=== PATIENT | male | born 1955 | race Caucasian/White ===

== ENCOUNTER 2019-10-23 10:07 | Outpatient (CLI) | payer BC, SELFPAY ==
[2019-10-23 11:19] LABS: Anion Gap 9 mmol/L (8-16); Blood Urea Nitrogen 10 mg/dL (9-20); Calcium 9.8 mg/dL (8.4-10.2); Carbon Dioxide 25 mmol/L (22-30); Chloride 99 mmol/L (98-107); Cholesterol 205 mg/dL (0-200); Estimated Glomerular Filt Rate > 60; Glucose 117 mg/dL (75-110); HDL Direct 51 mg/dL; Potassium 4.3 mmol/L (3.4-5.0); Sodium 133 mmol/L (137-145); Triglycerides 121 mg/dL (<150)
[2019-10-23 11:29] LABS: LDL Cholesterol Direct 132 mg/dL
[2019-10-23 11:49] LABS: Prostate Specific Antigen 1.5 ng/mL (< OR = 4.0)
== END 2019-10-23 10:08 | disposition home or self-care (01) ==
PROVIDERS: PCP Internal Medicine; Visit Provider Internal Medicine
DX: Z13.29 Encounter for screening for other suspected endocrine disorder (principal); I10 Essential (primary) hypertension; E78.5 Hyperlipidemia, unspecified; Z12.5 Encounter for screening for malignant neoplasm of prostate
CPT/HCPCS: 36415; 80048; 80061; 84153; 84443; G0103

== ENCOUNTER 2019-11-03 08:01 | Outpatient (CLI) | payer BC, SELFPAY ==
--- NOTE | ~2019-11-03 | CT_ITS ---
EXAMINATION: CT lung screening DATE: 11/03/2019 08:27 INDICATION: Tobacco use. TECHNIQUE: Computed tomography (CT) of the chest was performed without intravenous contrast. The dose -length product was 336.07 mGy-cm. Automated exposure control and iterative reconstruction technique were employed. COMPARISON: None FINDINGS: There is atherosclerosis of the aorta and coronary arteries. Heart size normal. No signific ant pleural or pericardial effusion. There is a 1.8 cm left adrenal adenoma. Otherwise, the upper abd omen is unremarkable. There are innumerable nodules measuring 2 mm or less primarily affecting the up per lobes in the subpleural location. No thoracic lymphadenopathy. IMPRESSION: 1. Subpleural miliary nodules measuring 2 mm or less primarily affecting the upper lobes, most likely infectious/inflammatory. Lung-RADS category 2: Benign appearance or behavior. Continue annual screen ing with noncontrast low-dose chest CT in 12 months. 2: Left adrenal adenoma measuring 1.8 cm. Reviewed, dictated and finalized at location A. IMPRESSION: 1. Subpleural miliary nodules measuring 2 mm or less primarily affecting the up per lobes, most likely infectious/inflammatory. Lung-RADS category 2: Benign ap pearance or behavior. Continue annual screening with noncontrast low-dose chest CT in 12 months. 2: Left adrenal adenoma measuring 1.8 cm.
--- NOTE | ~2019-11-03 | US_ITS ---
EXAMINATION: US aorta [facility] DATE: 11/03/2019 09:25 CDT INDICATION: Screening. Hypertension. High cholesterol. History of smoking. TECHNIQUE: Grayscale, color Doppler, and pulsed Doppler images of the aorta and common iliac arteries were obtained. COMPARISON: None. FINDINGS: The proximal aorta measures 2.7 cm greatest sagittal dimension. The mid aorta measures 2.2 cm greates t sagittal dimension. The distal aorta measures 2 cm greatest sagittal dimension. The right common in ternal iliac artery measures 1.2 cm. The left common iliac artery measures 1.2 cm. IMPRESSION: 1. Atherosclerosis of the aorta without evidence for aneurysm. Reviewed, dictated and finalized at location A.
== END 2019-11-03 08:02 | disposition home or self-care (01) ==
PROVIDERS: PCP Internal Medicine; Visit Provider Internal Medicine
DX: Z12.2 Encounter for screening for malignant neoplasm of respiratory organs (principal); R91.8 Other nonspecific abnormal finding of lung field; Z87.891 Personal history of nicotine dependence; Z13.6 Encounter for screening for cardiovascular disorders; I70.0 Atherosclerosis of aorta; D35.02 Benign neoplasm of left adrenal gland
CPT/HCPCS: 76706; G0297

== ENCOUNTER 2020-11-01 09:30 | Outpatient (CLI) | payer BC, SELFPAY ==
[2020-11-01 10:11] LABS: Hemoglobin A1C 5.8 % (<5.7)
[2020-11-01 10:12] LABS: Alanine Aminotransferase 49 U/L (4-50); Albumin Level 4.3 g/dL (3.5-5.1); Alkaline Phosphatase 57 U/L (38-126); Anion Gap 10 mmol/L (8-16); Aspartate Amino Transferase 34 U/L (17-59); Bilirubin,Total 0.8 mg/dL (0.2-1.3); Blood Urea Nitrogen 12 mg/dL (9-20); Calcium 9.5 mg/dL (8.4-10.2); Carbon Dioxide 22 mmol/L (22-30); Chloride 104 mmol/L (98-107); Cholesterol 139 mg/dL (0-200); Estimated Glomerular Filt Rate > 60; Glucose 116 mg/dL (65-110); HDL Direct 56 mg/dL; Potassium 4.7 mmol/L (3.4-5.0); Sodium 136 mmol/L (137-145); Triglycerides 92 mg/dL (<150)
[2020-11-01 10:23] LABS: LDL Cholesterol Direct 58 mg/dL
[2020-11-01 10:42] LABS: Prostate Specific Antigen 1.5 ng/mL (< OR = 4.0)
== END 2020-11-01 09:31 | disposition home or self-care (01) ==
PROVIDERS: PCP Internal Medicine; Visit Provider Nurse Practitioner
DX: Z12.5 Encounter for screening for malignant neoplasm of prostate (principal); E78.5 Hyperlipidemia, unspecified; R73.9 Hyperglycemia, unspecified
CPT/HCPCS: 36415; 80053; 80061; 83036; 84153; G0103

== ENCOUNTER 2021-04-30 08:36 | Outpatient (CLI) | payer BC, SELFPAY ==
--- NOTE | ~2021-04-30 | MR_ITS ---
EXAMINATION: MR shoulder RT wo con DATE: 04/30/2021 09:46 INDICATION: Pain in right shoulder. TECHNIQUE: Magnetic resonance imaging (MRI) of the right shoulder was performed without intravenous c ontrast. Sequences included axial PD-weighted FS FSE, coronal oblique PD-weighted FS FSE and T2-weigh azucena FS FSE, and sagittal oblique T2-weighted FS FSE and T1-weighted FSE. COMPARISON: Right shoulder radiographs 04/02/2021 FINDINGS: Coracoacromial arch: The acromion undersurface is flat in morphology (type I). There is severe acromioclavicular joint ost eoarthritis including inferiorly directed osteophytes. There is mild subacromial/subdeltoid bursitis. Rotator cuff: There is a bursal sided partial-thickness tear of supraspinatus and infraspinatus tendons measuring 1 4 mm anterior to posterior by 14 mm proximal to distal by 15% tendon thickness. There is an interstit ial tear at the distal attachment of the conjoined portion of the tendon measuring 5 mm anterior to p osterior by 2 mm proximal to distal by 40% tendon thickness. There is a small tear of infraspinatus m yotendinous junction. Teres minor tendon is normal. There is moderate subscapularis tendinopathy. The re is moderate fatty atrophy of teres minor muscle belly, consistent with quadrilateral space syndrom e. Biceps tendon and glenoid labrum: Biceps tendon is in bicipital groove. Intra-articular biceps tendon is normal. There is degeneration of the glenoid labrum without well-defined tear. Fluid: There is no glenohumeral joint effusion. Bones/cartilage: There is shallow partial-thickness cartilage loss of glenoid and humeral head. IMPRESSION: 1. Partial tears of supraspinatus and infraspinatus tendons. Small partial tear of infraspinatus myot endinous junction. 2. Mild glenohumeral joint chondrosis. 3. Severe acromioclavicular joint osteoarthritis. 4. Mild subacromial/subdeltoid bursitis. 5. Moderate fatty atrophy of teres minor muscle belly, consistent with quadrilateral space syndrome. Reviewed, dictated and finalized at location A. FARMER IMPRESSION: 1. Partial tears of supraspinatus and infraspinatus tendons. Small partial tear of infraspinatus myotendinous junction. 2. Mild glenohumeral joint chondrosis. 3. Severe acromioclavicular joint osteoarthritis. 4. Mild subacromial/subdeltoid bursitis. 5. Moderate fatty atrophy of teres minor muscle belly, consistent with quadrila teral space syndrome.
== END 2021-04-30 08:37 | disposition home or self-care (01) ==
PROVIDERS: PCP Internal Medicine; Visit Provider Orthopaedic Surgery
DX: M19.011 Primary osteoarthritis, right shoulder (principal); M75.51 Bursitis of right shoulder
CPT/HCPCS: 73221

== ENCOUNTER 2021-05-16 11:56 | Outpatient (CLI) | payer BC, SELFPAY ==
[2021-05-16 13:04] LABS: Alanine Aminotransferase 54 U/L (4-50); Albumin Level 4.6 g/dL (3.5-5.1); Alkaline Phosphatase 70 U/L (38-126); Anion Gap 8 mmol/L (8-16); Aspartate Amino Transferase 44 U/L (17-59); Bilirubin,Total 0.9 mg/dL (0.2-1.3); Blood Urea Nitrogen 12 mg/dL (9-20); Calcium 9.5 mg/dL (8.4-10.2); Carbon Dioxide 25 mmol/L (22-30); Chloride 98 mmol/L (98-107); Cholesterol 163 mg/dL (0-200); Estimated Glomerular Filt Rate > 60; Glucose 104 mg/dL (65-110); HDL Direct 54 mg/dL; Potassium 4.1 mmol/L (3.4-5.0); Sodium 131 mmol/L (137-145); Triglycerides 93 mg/dL (<150)
[2021-05-16 13:15] LABS: LDL Cholesterol Direct 79 mg/dL
[2021-05-16 13:43] LABS: Hemoglobin A1C 5.6 % (<5.7)
== END 2021-05-16 11:57 | disposition home or self-care (01) ==
LOC: ANHLAB 11:58
PROVIDERS: PCP Internal Medicine; Visit Provider Internal Medicine
DX: E78.5 Hyperlipidemia, unspecified (principal); Z51.81 Encounter for therapeutic drug level monitoring; Z79.899 Other long term (current) drug therapy; I10 Essential (primary) hypertension; R20.2 Paresthesia of skin; R73.9 Hyperglycemia, unspecified
CPT/HCPCS: 36415; 80053; 80061; 82607; 83036

== ENCOUNTER 2021-05-17 12:18 | Emergency (ER) | payer BC, SELFPAY ==
[2021-05-17 12:26] VITALS: BP 160/92; PULSE 85; RESP 16; TEMP 36.6; O2SAT 98
--- NOTE | 2021-05-17 13:06 | ED.DENTAL ---
HPI - Dental/Oral General Chief complaint: Dental/Oral Stated complaint: swelling gums Time Seen by Provider: 05/17/21 12:57 Source: patient and RN notes reviewed Mode of arrival: ambulatory Limitations: no limitations History of Present Illness HPI Narrative: Patient presents today complaint of a 2-week history of intermittent swollen and painful gums in the right upper and lower gumline. He has been using Tylenol Anbesol with some relief. Pain increases with biting and chewing. States it will be at least a couple of weeks until he is able to see a dentist. Related Data Allergies Allergy/AdvReac Type Severity Reaction Status Date / Time No Known Allergies Allergy Verified 05/17/21 12:52 Review of Systems Review of Systems: CONSTITUTIONAL: Denies body aches, fever, chills, or sweats. EYES: Denies visual changes, redness, or discharge. ENT: Denies rhinorrhea, congestion, sore throat, or otalgia.+gum Pain and swelling CARDIOVASCULAR: Denies chest pain, palpitations, or edema. RESPIRATORY: Denies cough or dyspnea. GASTROINTESTINAL: Denies abdominal pain, nausea, vomiting, or diarrhea. GENITOURINARY: Denies dysuria or hematuria. SKIN: Denies rash, itching, or wounds. MUSCULOSKELETAL: Denies back pain, joint pain, or myalgia. NEUROLOGIC: Denies headache, numbness, tingling, or weakness. PSYCH: Denies depression or anxiety. [facility] Past Medical History Medical History Arthritis Essential hypertension Mixed hyperlipidemia Tobacco abuse Wears glasses Family History Family History Sibling Patient's sister is in good health Patient's brother is in good health Father Cerebrovascular accident, Onset Age: 84 Family history of congestive heart failure, Onset Age: 84 No family history of osteoporosis Mother Family history of diabetes mellitus in first degree relative, Onset Age: 72 Diabetes mellitus Social History Social History Smoking packs per day: 1 Smoking cigarettes per day: 20.0 Years smoked: 40 Smoking pack-years: 40.00 Tobacco type: cigarettes Alcohol intake: current Substance use: never Additional occupation/education comments: [employer]. Gender identity (if verbalized by the patient): Male Comments At time of signature, I have reviewed and agree with nursing past medical, surgical, social and family history unless otherwise noted. Please see nursing chart for further information. There is no relevant family history pertinent to the presenting complaint Exam Narrative: GENERAL: Well-appearing, well-nourished, and in no acute distress. HEAD: Normocephalic, atraumatic. EYES: EOMI. No redness or drainage. Conjunctivae normal. ENT: Mucous membranes pink and moist. Throat normal. Uvula midline. Erythema and mild edema to the right upper gumline with tenderness to tooth #8. Scant swelling to right lower gumline. No obvious periapical abscesses noted. NECK: Normal AROM. Supple. No lymphadenopathy. CHEST: No respiratory distress. EXTREMITIES: Normal range of motion. No edema. SKIN: Warm, dry, no rash. Capillary refill normal. Normal skin turgor. NEURO: No focal deficits. Alert and oriented x3. Gait steady. PSYCH: Normal affect. No signs of depression or anxiety. Course Course Level of Care: Express Care Visit Vital Signs Vital signs: Vital Signs Temperature 97.8 F 05/17/21 12:26 Pulse Rate 85 05/17/21 12:26 Respiratory Rate 16 05/17/21 12:26 Blood Pressure 160/92 H 05/17/21 12:26 Pulse Oximetry 98 05/17/21 12:26 Temperature 97.8 F 05/17/21 12:26 Pulse Rate 85 05/17/21 12:26 Respiratory Rate 16 05/17/21 12:26 Blood Pressure 160/92 H 05/17/21 12:26 Pulse Oximetry 98 05/17/21 12:26 Reviewed. Pt has been instructed to follow up with his PCP regardin
== END 2021-05-17 13:13 | disposition home or self-care (01) ==
PROVIDERS: Emergency Provider Nurse Practitioner
DX: K05.10 Chronic gingivitis, plaque induced (principal); F17.210 Nicotine dependence, cigarettes, uncomplicated; M19.90 Unspecified osteoarthritis, unspecified site; I10 Essential (primary) hypertension; E78.2 Mixed hyperlipidemia
CPT/HCPCS: 99213; G0463

== ENCOUNTER 2021-05-28 15:56 | Outpatient (CLI) | payer BC, SELFPAY ==
--- NOTE | ~2021-05-28 | CT_ITS ---
EXAMINATION:CT lung screening DATE: 05/28/2021 16:16 INDICATION: Tobacco use. TECHNIQUE: Computed tomography (CT) of the chest was performed without intravenous contrast. Automate d exposure control and iterative reconstruction technique were employed. The dose-length product (DLP ) was 248.24 mGy-cm. COMPARISON: Chest CT 11/03/2019 FINDINGS: There is mild emphysema. There is mild atelectasis bilaterally. There is a stable 4 mm nodu le in left lower lobe. Again seen are multiple 1-2 mm nodules in the upper lungs. No pleural effusion . The heart size is normal. There are coronary artery calcifications. No pericardial effusion. There is a 16 mm cyst in right kidney. There is ectasia of ascending aorta measuring 4.4 cm. Again seen is a 1.7 cm mass in left adrenal gland measuring low-attenuation, consistent with an adenoma. There is s evere cervical and thoracic spondylosis. There is mild chronic anterior wedging of T12-L2 vertebral b odies. IMPRESSION: 1. Lung-RADS category 2: Benign appearance or behavior. Continue annual screening with noncontrast lo w-dose chest CT in 12 months. Reviewed, dictated and finalized at location A. IMPRESSION: 1. Lung-RADS category 2: Benign appearance or behavior. Continue annual screeni ng with noncontrast low-dose chest CT in 12 months.
== END 2021-05-28 15:57 | disposition home or self-care (01) ==
PROVIDERS: PCP Internal Medicine; Visit Provider Nurse Practitioner
DX: Z72.0 Tobacco use (principal)
CPT/HCPCS: 71271

== ENCOUNTER 2021-07-25 11:37 | Emergency (ER) | payer BC, SELFPAY ==
[2021-07-25 12:05] VITALS: BP 173/98; PULSE 102; RESP 16; TEMP 36.8; O2SAT 98
--- NOTE | 2021-07-25 12:37 | ED.EYEPROB ---
HPI - Eye Problem General Chief complaint: Eye Problems Stated complaint: right eye swollen/redness Time Seen by Provider: 07/25/21 12:37 Source: patient Mode of arrival: ambulatory Limitations: no limitations History of Present Illness HPI Narrative: 66-year-old male presents with complaint of right upper eyelid tenderness, itching, swelling, redness for 3 to 4 days. Is using a allergy eyedrop that he feels is helping with itching. Denies drainage. No vision changes. Does not wear contacts. All systems reviewed and negative except as noted above. Related Data Allergies Allergy/AdvReac Type Severity Reaction Status Date / Time No Known Allergies Allergy Verified 05/22/21 14:15 Review of Systems Review of Systems: CONSTITUTIONAL: Denies fever, chills, or sweats. EYES: Denies visual changes, redness, or discharge. ENT: Denies rhinorrhea, congestion, sore throat, or otalgia. CARDIOVASCULAR: Denies chest pain, palpitations, or edema. RESPIRATORY: Denies cough or dyspnea. GASTROINTESTINAL: Denies abdominal pain, nausea, vomiting, or diarrhea. GENITOURINARY: Denies dysuria or hematuria. SKIN: Denies rash or itching. Reports redness, tenderness, swelling to right upper eyelid. MUSCULOSKELETAL: Denies back pain, joint pain, or myalgia. NEUROLOGIC: Denies headache, numbness, or weakness. PSYCHIATRIC: Denies anxiety or depression. All other systems reviewed are negative, except as documented in HPI. COUNTS INCLUDE 234 BEDS AT THE [facility] Past Medical History Medical History Arthritis Essential hypertension Mixed hyperlipidemia Right rotator cuff tear Tobacco abuse Wears glasses Family History Family History Sibling Patient's sister is in good health Patient's brother is in good health Father Cerebrovascular accident, Onset Age: 84 Family history of congestive heart failure, Onset Age: 84 No family history of osteoporosis Mother Family history of diabetes mellitus in first degree relative, Onset Age: 72 Diabetes mellitus Social History Social History Smoking packs per day: 2 Smoking cigarettes per day: 40.0 Years smoked: 40 Smoking pack-years: 80.00 Tobacco type: cigarettes Second hand tobacco smoke exposure: No Alcohol intake: current Drinks per week: 30 Substance use: never Additional occupation/education comments: [employer]. Gender identity (if verbalized by the patient): Male Comments At time of signature, agree with nursing past medical, surgical, social and family history. There is no relevant family history pertinent to the presenting complaint. Exam Narrative: GENERAL: This is a well-nourished, well-developed patient, in no apparent distress. HEAD: normocephalic, atraumatic. EYES: PERRL. Sclera clear/white. Vision is grossly intact. Erythema, swelling to right upper eyelid with white pustule internally consistent for with a hordeolum. Tender on palpation. EARS: External ears normal NOSE: External nose normal NECK: Neck supple, non-tender without lymphadenopathy, masses or thyromegaly. CARDIOVASCULAR: Regular rate and rhythm without murmurs, gallops, or rubs. RESPIRATORY: Clear to auscultation. Breath sounds equal bilaterally. No wheezes, rales, or rhonchi. SKIN: warm, Dry, intact with no suspicious lesions or rash, good texture and turgor. NEURO: awake, alert, and oriented to person, place and time. There were no obvious focal neurologic abnormalities. EXTREMITIES: Normal range of motion to all extremities. Course Course Level of Care: Express Care Visit Vital Signs Vital signs: Vital Signs Temperature 36.8 C 07/25/21 12:05 Pulse Rate 102 H 07/25/21 12:05 Respiratory Rate 16 07/25/21 12:05 Blood Pressure 173/98 H 07/25/21 12:05 Pulse Oximetry 98 07/25/21 12:05 Oxygen Delivery Room Air 07/25/21 12:05 T
== END 2021-07-25 12:46 | disposition home or self-care (01) ==
PROVIDERS: Emergency Provider Nurse Practitioner Family
DX: H00.011 Hordeolum externum right upper eyelid (principal); F17.210 Nicotine dependence, cigarettes, uncomplicated; M19.90 Unspecified osteoarthritis, unspecified site; I10 Essential (primary) hypertension; E78.2 Mixed hyperlipidemia
CPT/HCPCS: 99213; G0463

== ENCOUNTER 2021-12-26 12:42 | Outpatient (CLI) | payer BC, SELFPAY ==
[2021-12-26 13:19] LABS: Alanine Aminotransferase 27 U/L (6-50); Albumin Level 4.4 g/dL (3.5-5.1); Alkaline Phosphatase 77 U/L (38-126); Anion Gap 12 mmol/L (8-16); Aspartate Amino Transferase 30 U/L (17-59); Bilirubin,Total 1.1 mg/dL (0.2-1.3); Blood Urea Nitrogen 11 mg/dL (9-20); Calcium 9.4 mg/dL (8.4-10.2); Carbon Dioxide 23 mmol/L (22-30); Chloride 95 mmol/L (98-107); Cholesterol 112 mg/dL (0-200); Estimated Glomerular Filt Rate > 60; Glucose 95 mg/dL (65-110); HDL Direct 51 mg/dL; Potassium 4.4 mmol/L (3.4-5.0); Sodium 130 mmol/L (137-145); Triglycerides 63 mg/dL (<150)
[2021-12-26 13:30] LABS: LDL Cholesterol Direct 42 mg/dL
[2021-12-26 13:40] LABS: Hemoglobin A1C 5.7 % (<5.7)
[2021-12-26 13:46] LABS: Prostate Specific Antigen 2.5 ng/mL (< OR = 4.0)
== END 2021-12-26 12:43 | disposition home or self-care (01) ==
LOC: ANHLAB 12:43
PROVIDERS: PCP Internal Medicine; Visit Provider Nurse Practitioner
DX: E78.5 Hyperlipidemia, unspecified (principal); Z12.5 Encounter for screening for malignant neoplasm of prostate; R73.9 Hyperglycemia, unspecified
CPT/HCPCS: 36415; 80053; 80061; 83036; 84153; G0103

== ENCOUNTER 2022-07-03 09:25 | Outpatient (CLI) | payer BC, SELFPAY ==
[2022-07-03 10:34] LABS: Hemoglobin A1C 5.5 % (<5.7)
[2022-07-03 10:39] LABS: Alanine Aminotransferase 46 U/L (6-50); Albumin Level 4.6 g/dL (3.5-5.1); Alkaline Phosphatase 62 U/L (38-126); Anion Gap 11 mmol/L (8-16); Aspartate Amino Transferase 35 U/L (17-59); Bilirubin,Total 0.7 mg/dL (0.2-1.3); Blood Urea Nitrogen 12 mg/dL (9-20); Calcium 9.3 mg/dL (8.4-10.2); Carbon Dioxide 24 mmol/L (22-30); Chloride 99 mmol/L (98-107); Cholesterol 130 mg/dL (0-200); Estimated Glomerular Filt Rate > 60; Glucose 108 mg/dL (65-110); HDL Direct 63 mg/dL; Potassium 4.2 mmol/L (3.4-5.0); Sodium 134 mmol/L (137-145); Triglycerides 74 mg/dL (<150)
[2022-07-03 10:50] LABS: LDL Cholesterol Direct 57 mg/dL
== END 2022-07-03 09:26 | disposition home or self-care (01) ==
PROVIDERS: Internal Medicine; PCP Family Medicine; Visit Provider Family Medicine
DX: I10 Essential (primary) hypertension (principal); Z79.899 Other long term (current) drug therapy; E78.5 Hyperlipidemia, unspecified; R73.02 Impaired glucose tolerance (oral)
CPT/HCPCS: 36415; 80053; 80061; 83036

== ENCOUNTER 2023-01-06 11:55 | Outpatient (CLI) | payer OTHER, SELFPAY ==
[2023-01-06 12:55] LABS: Hemoglobin A1C 5.5 % (<5.7)
[2023-01-06 12:58] LABS: Alanine Aminotransferase 35 U/L (6-50); Albumin Level 4.6 g/dL (3.5-5.1); Alkaline Phosphatase 53 U/L (38-126); Anion Gap 11 mmol/L (8-16); Aspartate Amino Transferase 27 U/L (17-59); Bilirubin,Total 0.9 mg/dL (0.2-1.3); Blood Urea Nitrogen 13 mg/dL (9-20); Carbon Dioxide 22 mmol/L (22-30); Chloride 101 mmol/L (98-107); Cholesterol 136 mg/dL (0-200); Estimated Glomerular Filt Rate > 60; Glucose 113 mg/dL (65-110); HDL Direct 56 mg/dL; Potassium 3.9 mmol/L (3.4-5.0); Sodium 134 mmol/L (137-145); Triglycerides 94 mg/dL (<150)
[2023-01-06 13:08] LABS: LDL Cholesterol Direct 64 mg/dL
== END 2023-01-06 11:56 | disposition home or self-care (01) ==
LOC: ANHLAB 11:59
PROVIDERS: PCP Nurse Practitioner; Visit Provider Nurse Practitioner
DX: E78.5 Hyperlipidemia, unspecified (principal); Z12.5 Encounter for screening for malignant neoplasm of prostate; R73.02 Impaired glucose tolerance (oral)
CPT/HCPCS: 36415; 80053; 80061; 83036; 84153; G0103

== ENCOUNTER 2023-07-06 12:32 | Outpatient (CLI) | payer OTHER, SELFPAY ==
[2023-07-06 13:30] LABS: Alanine Aminotransferase 42 U/L (6-50); Albumin Level 4.5 g/dL (3.5-5.1); Alkaline Phosphatase 62 U/L (38-126); Anion Gap 6 mmol/L (4-12); Aspartate Amino Transferase 32 U/L (17-59); Bilirubin,Total 0.8 mg/dL (0.2-1.3); Blood Urea Nitrogen 9 mg/dL (9-20); Carbon Dioxide 25 mmol/L (22-30); Chloride 104 mmol/L (98-107); Cholesterol 129 mg/dL (0-200); Estimated Glomerular Filt Rate > 60; Glucose 90 mg/dL (65-110); HDL Direct 52 mg/dL; Potassium 3.9 mmol/L (3.4-5.0); Sodium 135 mmol/L (137-145); Triglycerides 174 mg/dL (<150)
[2023-07-06 13:41] LABS: LDL Cholesterol Direct 68 mg/dL
[2023-07-06 15:13] LABS: Hemoglobin A1C 5.5 % (<5.7)
== END 2023-07-06 12:33 | disposition home or self-care (01) ==
LOC: ANHLAB 12:33
PROVIDERS: PCP Nurse Practitioner; Visit Provider Nurse Practitioner
DX: E78.5 Hyperlipidemia, unspecified (principal); R73.02 Impaired glucose tolerance (oral)
CPT/HCPCS: 36415; 80053; 80061; 83036

== ENCOUNTER 2023-07-26 12:52 | Outpatient (CLI) | payer OTHER, SELFPAY ==
[2023-07-27 16:13] LABS: Protein, Total 7.6 g/dL (6.1-8.1)
[2023-07-28 11:29] LABS: Abnormal Protein Band 1 0.6 g/dL (NONE DETECTED); Abnormal Protein Band 2 1.3 g/dL (NONE DETECTED); Albumin 3.6 g/dL (3.8-4.8); Alpha 1 Globulin 0.3 g/dL (0.2-0.3); Alpha 2 Globulin 0.8 g/dL (0.5-0.9); Beta 1 Globulin 0.8 g/dL (0.4-0.6); Gamma Globulin 1.9 g/dL (0.8-1.7)
== END 2023-07-26 12:53 | disposition home or self-care (01) ==
PROVIDERS: PCP Nurse Practitioner; Visit Provider Nurse Practitioner
DX: E88.09 Other disorders of plasma-protein metabolism, not elsewhere classified (principal)
CPT/HCPCS: 36415; 84155; 84165

== ENCOUNTER 2024-01-17 13:42 | Outpatient (CLI) | payer OTHER, SELFPAY ==
[2024-01-17 14:41] LABS: Alanine Aminotransferase 48 U/L (6-50); Albumin Level 4.5 g/dL (3.5-5.1); Alkaline Phosphatase 60 U/L (38-126); Anion Gap 8 mmol/L (4-12); Aspartate Amino Transferase 41 U/L (17-59); Bilirubin,Total 0.9 mg/dL (0.2-1.3); Blood Urea Nitrogen 9 mg/dL (9-20); Calcium 9.8 mg/dL (8.4-10.2); Carbon Dioxide 26 mmol/L (22-30); Chloride 100 mmol/L (98-107); Cholesterol 132 mg/dL (0-200); Estimated Glomerular Filt Rate > 60; Glucose 76 mg/dL (65-110); HDL Direct 57 mg/dL; Potassium 4.2 mmol/L (3.4-5.0); Sodium 134 mmol/L (137-145); Triglycerides 169 mg/dL (<150)
[2024-01-17 14:52] LABS: LDL Cholesterol Direct 58 mg/dL
[2024-01-17 14:59] LABS: Hemoglobin A1C 5.9 % (<5.7)
[2024-01-17 15:12] LABS: Prostate Specific Antigen 1.8 ng/mL (< OR = 4.0)
== END 2024-01-17 13:43 | disposition home or self-care (01) ==
PROVIDERS: PCP Nurse Practitioner; Visit Provider Nurse Practitioner
DX: E78.5 Hyperlipidemia, unspecified (principal); Z12.5 Encounter for screening for malignant neoplasm of prostate; R73.02 Impaired glucose tolerance (oral)
CPT/HCPCS: 36415; 80053; 80061; 83036; 84153; G0103

== ENCOUNTER 2024-08-02 13:24 | Outpatient (CLI) | payer OTHER, SELFPAY ==
[2024-08-02 13:52] LABS: Alanine Aminotransferase 47 U/L (6-50); Albumin Level 4.6 g/dL (3.5-5.1); Alkaline Phosphatase 63 U/L (38-126); Anion Gap 10 mmol/L (4-12); Aspartate Amino Transferase 38 U/L (17-59); Bilirubin,Total 0.9 mg/dL (0.2-1.3); Blood Urea Nitrogen 10 mg/dL (9-20); Calcium 9.9 mg/dL (8.4-10.2); Carbon Dioxide 23 mmol/L (22-30); Chloride 101 mmol/L (98-107); Cholesterol 121 mg/dL (0-200); Estimated Glomerular Filt Rate > 60; Glucose 106 mg/dL (65-110); HDL Direct 53 mg/dL; Potassium 4.1 mmol/L (3.4-5.0); Sodium 134 mmol/L (137-145); Triglycerides 98 mg/dL (<150)
[2024-08-02 14:03] LABS: LDL Cholesterol Direct 49 mg/dL
[2024-08-02 14:27] LABS: Hemoglobin A1C 5.8 % (<5.7)
== END 2024-08-02 13:25 | disposition home or self-care (01) ==
PROVIDERS: PCP Nurse Practitioner; Visit Provider Nurse Practitioner
DX: E78.5 Hyperlipidemia, unspecified (principal); R73.02 Impaired glucose tolerance (oral)
CPT/HCPCS: 36415; 80053; 80061; 83036

== ENCOUNTER 2024-11-01 14:12 | Outpatient (CLI) | payer OTHER, SELFPAY ==
--- NOTE | ~2024-11-01 | CT_ITS ---
EXAMINATION:CT lung screening DATE: 11/01/2024 14:39 INDICATION: Personal history of nicotine dependence. Current smoker with 60 pack year history. TECHNIQUE: Computed tomography (CT) of the chest was performed without intravenous contrast. Automated exposure control and iterative reconstruction technique were employed. The dose-length product (DLP) was 176.36 mGy-cm. COMPARISON: Chest CT 05/28/2021 FINDINGS: There is mild emphysema. There is a 2 mm nodule in right upper lobe. There is a 2 mm nodule in left upper lobe. A calcified right lung nodule is consistent with old granulomatous disease. No pleural effusion. The heart size is normal. There are coronary artery calcifications. No pericardial effusion. There is ectasia of ascending aorta measuring 4.3 cm. There is a chronic 1.7 cm mass in left adrenal gland measuring low attenuation, consistent with an adenoma. There is severe cervical spondylosis and moderate thoracic spondylosis. IMPRESSION: 1. Lung-RADS category 2: Benign appearance or behavior. Continue annual screening with noncontrast low-dose chest CT in 12 months. Reviewed, dictated and finalized at location E. IMPRESSION: 1. Lung-RADS category 2: Benign appearance or behavior. Continue annual screeni ng with noncontrast low-dose chest CT in 12 months.
[2024-11-01 16:08] LABS: Alanine Aminotransferase 57 U/L (6-50); Albumin Level 4.2 g/dL (3.5-5.1); Alkaline Phosphatase 69 U/L (38-126); Anion Gap 9 mmol/L (4-12); Aspartate Amino Transferase 49 U/L (17-59); Bilirubin,Total 1.1 mg/dL (0.2-1.3); Blood Urea Nitrogen 7 mg/dL (9-20); Calcium 9.6 mg/dL (8.4-10.2); Carbon Dioxide 24 mmol/L (22-30); Chloride 99 mmol/L (98-107); Cholesterol 131 mg/dL (0-200); Estimated Glomerular Filt Rate > 60; Glucose 96 mg/dL (65-110); HDL Direct 47 mg/dL; Potassium 4.0 mmol/L (3.4-5.0); Sodium 132 mmol/L (137-145); Total Protein 8.8 g/dL (6.3-8.2); Triglycerides 135 mg/dL (<150)
[2024-11-01 16:43] LABS: Prostate Specific Antigen 2.0 ng/mL (< OR = 4.0)
== END 2024-11-01 14:13 | disposition home or self-care (01) ==
PROVIDERS: PCP Nurse Practitioner; Visit Provider Nurse Practitioner
DX: Z12.2 Encounter for screening for malignant neoplasm of respiratory organs (principal); Z87.891 Personal history of nicotine dependence; E78.5 Hyperlipidemia, unspecified; Z12.5 Encounter for screening for malignant neoplasm of prostate
CPT/HCPCS: 36415; 71271; 80053; 80061; 84153; G0103